=== PATIENT | male | born 1985 | race Caucasian/White ===

== ENCOUNTER 2020-05-03 22:15 | Emergency (ER) | payer OTHER ==
[2020-05-03] MEDS ORDERED: Lidocaine 1% 10 ML MDV INJECT ONE (22:41)
--- NOTE | 2020-05-03 23:48 | EDM.PDOC ---
ED HPI GENERAL MEDICAL PROBLEM - General Chief Complaint: Laceration Stated Complaint: WORKERS COMP ACCIDENT Time Seen by Provider: 05/03/20 22:56 Source of Information: Reports: Patient - History of Present Illness INITIAL COMMENTS - FREE TEXT/NARRATIVE: HISTORY AND PHYSICAL: History of present illness: This is a 35-year-old gentleman who presents ER today for a second opinion regarding a laceration to his nose that occurred approximately 8:30 AM, approximately 15 hours ago. Patient reports that he went to [facility] and was evaluated there after the incident however patient reports that they applied Neosporin and did not suture it. Patient feels that the laceration was deep and likely would benefit from sutures so he came here for second opinion regarding repair. Patient denies any other symptomatology. Patient has any LOC, nausea, vomiting, diarrhea, fevers, shakes, chills. Patient reports he did have his tetanus status updated earlier today. Review of systems: As per history of present illness and below otherwise all systems reviewed and negative. Past medical history: As per history of present illness and as reviewed below otherwise noncontributory. Surgical history: As per history of present illness and as reviewed below otherwise noncontributory. Social history: No reported history of drug or alcohol abuse. Family history: As per history of present illness and as reviewed below otherwise noncontributory. Physical exam: Constitutional: Patient is oriented to person, place, and time. Appears well- developed and well-nourished. No distress. HEENT: Moist mucous membranes Head: Normocephalic and atraumatic Eyes: Right eye exhibits no discharge. Left eye exhibits no discharge. No scleral icterus Neck: Normal range of motion. No tracheal deviation present. Cardiovascular: Normal rate and regular rhythm. Pulmonary: Effort normal, no respiratory distress. Abdominal: No distention Musculoskeletal: Normal range of motion Neurologic: Alert and oriented to person, place and time. Skin: [place], warm and dry. Psychiatric: Normal mood and affect. Behavior is normal. Judgment and thought content normal. Nursing note and vital signs have been reviewed Patient has no point bony tenderness to the bony aspect of his nares. Patient does have a 3 cm V-shaped laceration over his right alar of his nose. Wound was irrigated extensively with saline soaked solution. Wound does appear to be relatively deep and will require sutures. I have discussed with the patient the risk of infection with a 15-hour laceration however he is amenable to the risks of infection. Patient understands that there is a high risk of infection and we will start him on antibiotics. Therapeutics: Suture: Please see suture note. Assessment and plan: 35-year-old gentleman who presents ER today with a laceration at approximately 11 hours old. Patient reports that he was seen in a prior hospital and they did not sutured him. Patient presented to the ER today for second opinion. Upon my evaluation, I believe that the patient would benefit from suturing despite the risk of infection. Patient is agreeable to this plan. Patient was sutured in the ED. Patient will be given Keflex 500 twice daily x7 days. Patient was instructed to have a wound check in 2 days by his primary care physician. Definitive disposition and diagnosis as appropriate pending reevaluation and review of above. - Related Data Allergies Allergy/AdvReac Type Severity Reaction Status Date / Time No Known Allergies Allergy Verified 05/03/20 22:36 Home Meds: Home Meds cephALEXin [Keflex] 500 mg PO BID #14 cap 05/03/20 [Rx] Past Medical History HEENT History: Reports: Allergic Rhinitis Other Cardiovascular History: bradycardia Other Musculoskeletal History: Broke R leg x2 in childhood - Infectious Disease History Infectious Disease History: Reports: Chicken Pox Social & Family History - Tobacco Use Smoking Status *Q: Never Smoker - Caffeine Use Caffeine Use: Reports: None ED ROS GENERAL - Review of Systems Review Of Systems: Comprehensive ROS is negative, except as noted in HPI. ED EXAM, SKIN/RASH Exam: See Below ED SKIN PROCEDURES - Laceration/Wound Repair Right Nare Appearance: Subcutaneous, Stellate, Irregular, Mildly Contaminated Distal NVT: Neuro & Vascular Intact Anesthetic Type: Local Local Anesthesia - Lidocaine (Xylocaine): 1% Plain Local Anesthetic Volume: 3cc Skin Prep: Saline Saline Irrigation (cc's): 200 Exploration/Debridement/Repair: Wound Explored Closed with: Sutures Lac/Wound length In cm: 3 Suture Size: 5-0 # of Sutures: 5 Suture Type: Nylon, Simple Course - Vital Signs Last Recorded V/S: Last Vital Signs Temp 98.0 F 05/03/20 22:36 Pulse 46 L 05/03/20 22:36 Resp 20 05/03/20 22:36 BP 127/68 05/03/20 22:36 Pulse Ox 100 05/03/20 22:36 - Orders/Labs/Meds Meds: Medications Discontinued Medications Generic Name Dose Route Start Last Admin Trade Name Nini PRN Reason Stop Dose Admin Lidocaine HCl 10 ml 05/03/20 22:41 05/03/20 23:40 Xylocaine 1% INJECT 05/03/20 22:42 Not Given ONETIME ONE Lidocaine HCl Confirm 05/03/20 22:47 05/03/20 23:40 Xylocaine-Mpf 1% Administered 05/03/20 22:48 5 ml Dose Administration 5 ml .ROUTE .STK-MED ONE Departure - Departure Time of Disposition: 23:48 Disposition: Home, Self-Care 01 Condition: Good Clinical Impression: Nasal laceration - Discharge Information Instructions: Laceration Care, Adult Referrals: PCP,None [Primary Care Provider] - Additional Instructions: Your wound was sutured in the ED today. Given the delay in repair, there is a high risk of wound infection. Please take Keflex 5 mg twice a day for 7 days. You will need a wound check and close follow-up in 2 days to make sure there is no signs of infection. Your sutures can be removed in 7 days. The following information is given to patients seen in the emergency department who are being discharged to home. This information is to outline your options for follow-up care. We provide all patients seen in our emergency department with a follow-up referral. The need for follow-up, as well as the timing and circumstances, are variable depending upon the specifics of your emergency department visit. If you don't have a primary care physician on staff, we will provide you with a referral. We always advise you to contact your personal physician following an emergency department visit to inform them of the circumstance of the visit and for follow-up with them and/or the need for any referrals to a consulting specialist. The emergency department will also refer you to a specialist when appropriate. This referral assures that you have the opportunity for follow-up care with a specialist. All of these measure are taken in an effort to provide you with optimal care, which includes your follow-up. Under all circumstances we always encourage you to contact your private physician who remains a resource for coordinating your care. When calling for follow-up care, please make the office aware that this follow-up is from your recent emergency room visit. If for any reason you are refused follow-up, please contact the [facility] Emergency Department at and asked to speak to the emergency department charge nurse. Sepsis Event Note (ED) - Evaluation Sepsis Screening Result: No Definite Risk - Focused Exam Vital Signs: Vital Signs Temp Pulse Resp BP Pulse Ox 05/03/20 22:36 98.0 F 46 L 20 127/68 100
== END 2020-05-04 | disposition home or self-care (01) ==
LOC: MW.ED 22:15
DX: S01.21XA Laceration without foreign body of nose, initial encounter (principal); X58.XXXA Exposure to other specified factors, initial encounter
CPT/HCPCS: 12013; 99282; J2001